=== PATIENT | male | born 1990 | race Caucasian/White ===

== ENCOUNTER 2016-10-30 00:37 | Emergency (ER) | payer SELFPAY ==
[~2016-10-30] VITALS: Ht 175.3 cm; Wt 57.2 kg
[2016-10-30] MEDS ORDERED: IV NORMAL SALINE 1,000ML 1,000 ML IV ONE (01:00)
[2016-10-30] MEDS ORDERED: LORazepam 2 MG/ML VIAL IV ONE (01:00)
[2016-10-30 01:04] LABS: BASO % 1 % (0-3); EOS % 0 % (0-3); HEMOGLOBIN 15.5 g/dL (13.0-17.5); LYMPH # 1.8 x10^3/uL (1.0-4.8); LYMPH % 24 % (24-48); MEAN CORPUSCULAR HEMOGLOBIN 29 pg (25-35); MEAN CORPUSCULAR HGB CONC 35 g/dL (31-37); MEAN CORPUSCULAR VOLUME 85 fL (79-100); MONO # 0.7 x10^3/uL (0.0-1.1); MONO % 9 % (0-9); NEUT # 4.9 x10^3uL (1.8-7.7); NEUT % 66 % (31-73); PLATELET COUNT 323 x10^3/uL (140-400); RED BLOOD COUNT 5.28 x10^6/uL (4.30-5.70); RED CELL DISTRIBUTION WIDTH 13.8 % (11.5-14.5); WHITE BLOOD COUNT 7.4 x10^3/uL (4.0-11.0)
[2016-10-30] MEDS ORDERED: LORazepam 2 MG/ML VIAL ONE (01:09)
[2016-10-30] MEDS ORDERED: IV NORMAL SALINE 1,000ML 1,000 ML ONE (01:09)
[2016-10-30 01:18] LABS: CALCIUM 9.2 mg/dL (8.5-10.1); CREATININE 0.8 mg/dL (0.7-1.3); GFR 118.8; POTASSIUM 3.4 mmol/L (3.5-5.1)
--- NOTE | 2016-10-30 01:40 | ED.ADGEN ---
Past History Past Medical History: No Pertinent History Additional Past Medical Histor: methamphetamine abuse Past Surgical History: No Surgical History Smoking: Less than 1pk/day Alcohol Use: Occasionally Drug Use: Amphetamine Adult General Chief Complaint Chief Complaint chest pain HPI HPI Patient is a [26] year old [male] who presents with chest pain after using meth. 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 he went to [place] about 1month ago for same thing. he has nitro pills they gave him but is scared to take them. no SOA. no fever, no n/v/d Review of Systems Review of Systems Constitutional: Denies fever or chills [] Eyes: Denies change in visual acuity, redness, or eye pain [] HENT: Denies nasal congestion or sore throat [] Respiratory: Denies cough or shortness of breath [] Cardiovascular: chest pain[] GI: Denies abdominal pain, nausea, vomiting, bloody stools or diarrhea [] : Denies dysuria or hematuria [] Musculoskeletal: Denies back pain or joint pain [] Integument: Denies rash or skin lesions [] Neurologic: Denies headache, focal weakness or sensory changes [] Endocrine: Denies polyuria or polydipsia [] Current Medications Current Medications Current Medications Medications (Trade) Dose Ordered Sig/Jonathon Start Time Stop Time Status Last Admin Dose Admin Lorazepam (Ativan) 2 mg 1X ONCE 10/30/16 01:00 10/30/16 01:01 UNV 10/30/16 01:00 2 MG Sodium Chloride 1,000 ml @ 1,000 mls/hr 1X ONCE 10/30/16 01:00 10/30/16 01:59 UNV 10/30/16 01:00 1,000 MLS/HR Physical Exam Physical Exam Constitutional: Well developed, well nourished, anxious, non-toxic appearance. [ ] HENT: Normocephalic, atraumatic, bilateral external ears normal, oropharynx moist, no oral exudates, nose normal. [] Eyes: PERRLA, EOMI, conjunctiva normal, no discharge. [] Neck: Normal range of motion, no tenderness, supple, no stridor. [] Cardiovascular:tachycardia, no murmur [] Lungs & Thorax: Bilateral breath sounds clear to auscultation [] Abdomen: Bowel sounds normal, soft, no tenderness, no masses, no pulsatile masses. [] Skin: Warm, dry, no erythema, no rash. [] Back: No tenderness, no CVA tenderness. [] Extremities: No tenderness, no cyanosis, no clubbing, ROM intact, no edema. [] Neurologic: Alert and oriented X 3, normal motor function, normal sensory function, no focal deficits noted. [] Psychologic: Affect normal, judgement normal, mood normal. [] Current Patient Data Lab Results Laboratory Tests Test 10/30/16 00:49 White Blood Count 7.4 x10^3/uL (4.0-11.0) Red Blood Count 5.28 x10^6/uL (4.30-5.70) Hemoglobin 15.5 g/dL (13.0-17.5) Hematocrit 45.0 % (39.0-53.0) Mean Corpuscular Volume 85 fL (79-100) Mean Corpuscular Hemoglobin 29 pg (25-35) Mean Corpuscular Hemoglobin Concent 35 g/dL (31-37) Red Cell Distribution Width 13.8 % (11.5-14.5) Platelet Count 323 x10^3/uL (140-400) Neutrophils (%) (Auto) 66 % (31-73) Lymphocytes (%) (Auto) 24 % (24-48) Monocytes (%) (Auto) 9 % (0-9) Eosinophils (%) (Auto) 0 % (0-3) Basophils (%) (Auto) 1 % (0-3) Neutrophils # (Auto) 4.9 x10^3uL (1.8-7.7) Lymphocytes # (Auto) 1.8 x10^3/uL (1.0-4.8) Monocytes # (Auto) 0.7 x10^3/uL (0.0-1.1) Eosinophils # (Auto) 0.0 x10^3/uL (0.0-0.7) Basophils # (Auto) 0.0 x10^3/uL (0.0-0.2) Sodium Level 137 mmol/L (136-145) Potassium Level 3.4 mmol/L (3.5-5.1) L Chloride Level 102 mmol/L (98-107) Carbon Dioxide Level 24 mmol/L (21-32) Anion Gap 11 (6-14) Blood Urea Nitrogen 11 mg/dL (8-26) Creatinine 0.8 mg/dL (0.7-1.3) Estimated GFR (Cockcroft-Gault) 118.8 Glucose Level 79 mg/dL (70-99) Calcium Level 9.2 mg/dL (8.5-10.1) Creatine Kinase 182 U/L (39-308) Troponin I Quantitative < 0.017 ng/mL (0-0.055) EKG EKG [] Radiology/Procedures Radiology/Procedures [] Impressions: CXR NAD Course & Med Decision Making Course & Med Decision Making Pertinent Labs and Imaging studies reviewed. (See chart for details) Long talk about meth and it's effects on life and body [] Final Impression Final Impression methamphetamine abuse Problems: Dragon Disclaimer Dragon Disclaimer This electronic medical record was generated, in whole or in part, using a voice recognition dictation system. Departure Time of Disposition: 01:40 Disposition: 01 HOME, SELF-CARE Condition: STABLE Patient Instructions: Methamphetamine Abuse, Complications Additional Instructions: stop using meth. return if symptoms worsen NOELLE ANGUIANO MD Oct 30, 2016 01:40
[2016-10-30 02:03] VITALS: BP 131/83
--- NOTE | 2016-10-31 07:20 | EKG ---
[address] [id number] Test Date: 2016-10-30 Test Time: 00:50:40 Pat Name: LUCY NEVAREZ Department: Room: Gender: M Computer Technologist: CLIFFORD : 1990 Requested By: NOELLE ANGUIANO Order Number: [id number] Reading MD: Willy Forde Measurements Intervals [place] Rate: 101 P: 45 UT: 162 QRS: 91 QRSD: 88 T: 43 QT: 316 QTc: 410 Interpretive Statements SINUS TACHYCARDIA Electronically Signed On 10-31-2016 9:35:51 CDT by Willy Forde
== END 2016-10-30 02:03 | disposition home or self-care (01) ==
LOC: ER 00:38
DX: F15.10 Other stimulant abuse, uncomplicated (principal); F17.210 Nicotine dependence, cigarettes, uncomplicated
CPT/HCPCS: 36415; 80048; 82550; 84484; 85027; 96361; 96374; 99285; J2060; J7030